=== PATIENT | male | born 1965 | race Caucasian/White ===

== ENCOUNTER 2020-12-09 15:44 | Emergency (ER) | payer OTHER ==
[2020-12-09 16:07] VITALS: BP 163/111; PULSE 102; TEMP 98.1; BMI 28.1
[2020-12-09 17:02] LABS: BASO % 1.2 % (0-2.0); EOS % 2.9 % (0-4.5); HEMATOCRIT 47.2 % (35.4-49); HEMOGLOBIN 15.9 GM/dl (11.7-16.9); LYMPH % 25.9 % (8-40); MCH 29.9 pg (25.7-33.7); MCHC 33.8 g/dl (32.0-35.9); MEAN CELL VOLUME 88.5 fl (80-96); MEAN PLT VOLUME 8.5 fl (7.5-11.1); MONO % 6.4 % (3.8-10.2); NEUT % 63.6 % (42.8-82.8); PLATELET COUNT 269 K/MM3 (134-434); RBC 5.33 M/mm3 (4.00-5.60); RDW 12.3 % (11.9-15.9); WHITE BLOOD COUNT 6.2 K/mm3 (4.0-10.8)
[2020-12-09 17:18] LABS: ALBUMIN 4.1 g/dl (3.4-5.0); ALK PHOS 62 U/L (45-117); ANION GAP 7 MMOL/L (8-16); BILIRUBIN,TOTAL 0.6 mg/dl (0.2-1); CALCIUM 9.1 mg/dl (8.5-10); CHLORIDE 104 mmol/L (98-107); CO2 24 mmol/L (21-32); GLUCOSE,RANDOM 105 mg/dl (74-106); SGOT/AST 25 U/L (15-37); SGPT/ALT 52 U/L (13-61); SODIUM 135 mmol/L (136-145); TOT PROT 7.3 g/dl (6.4-8.2)
== END 2020-12-09 20:58 | disposition left against medical advice (07) ==
LOC: FER 15:44
DX: R10.13 Epigastric pain (principal)
CPT/HCPCS: 36415; 71046-TC-FY; 80053; 82550; 83735; 84443; 84484; 85025; 85379; 93005; 99285-25; C9803; U0003

== ENCOUNTER 2020-12-28 08:47 | Inpatient (IN) | payer OTHER ==
[2020-12-28] MEDS ORDERED: ASPIRIN 81 MG CHEWABLE TABLETS PO ONE (09:09)
[2020-12-28] MEDS ORDERED: METOPROLOL TARTRATE 5 MG/5 ML VIAL IVPUSH ONE (09:10)
[2020-12-28] MEDS ORDERED: NITROGLYCERIN SUBLINGUAL 1/150 0.4 MG TAB SL ONE (09:10)
[2020-12-28] MEDS ORDERED: FAMOTIDINE 20 MG/50 ML IVPB 20 MG/50 ML MG IVPB ONE ×2 (09:22→09:32)
[2020-12-28] MEDS ORDERED: METOPROLOL TARTRATE 5 MG/5 ML VIAL ONE (09:24)
[2020-12-28] MEDS ORDERED: ASPIRIN 81 MG CHEWABLE TABLETS ONE (09:24)
[2020-12-28] MEDS ORDERED: NITROGLYCERIN SUBLINGUAL 1/150 0.4 MG TAB ONE (09:24)
[2020-12-28 09:30] LABS: HEMATOCRIT 48.2 % (35.4-49); HEMOGLOBIN 16.7 GM/dl (11.7-16.9); MCH 30.4 pg (25.7-33.7); MCHC 34.6 g/dl (32.0-35.9); MEAN CELL VOLUME 87.8 fl (80-96); MEAN PLT VOLUME 8.8 fl (7.5-11.1); PLATELET COUNT 264 K/MM3 (134-434); RBC 5.49 M/mm3 (4.00-5.60); RDW 12.3 % (11.9-15.9); WHITE BLOOD COUNT 6.4 K/mm3 (4.0-10.8)
[2020-12-28 09:46] LABS: ALBUMIN 4.1 g/dl (3.4-5.0); BILIRUBIN,TOTAL 0.7 mg/dl (0.2-1); CALCIUM 9.6 mg/dl (8.5-10); CREATININE 0.9 mg/dl (0.55-1.3); TOT PROT 7.3 g/dl (6.4-8.2)
[2020-12-28 09:55] LABS: PLATELET ESTIMATE ADEQUATE
[2020-12-28] MEDS ORDERED: dilTIAZem HCL 50 MG/10 ML - 10 ML VIAL IVPUSH ONE ×5 (10:23→15:07)
[2020-12-28] MEDS ORDERED: dilTIAZem HCL 125 MG/25 ML - 25 ML VIAL ONE ×2 (10:37→13:29)
[2020-12-28] MEDS ORDERED: dilTIAZem HCL 30 MG TABLET PO ONE (12:20)
[2020-12-28] MEDS ORDERED: dilTIAZem HCL 30 MG TABLET ONE (12:28)
[2020-12-28] MEDS: APIXABAN 5 MG TABLET PO SCH (13:34)
[2020-12-28 13:41] LABS: CHOLESTEROL 307 mg/dl (50-200); HDL CHOLESTEROL 50 mg/dl (40-60); LDL CHOLESTEROL (ONLY DFH) 216 mg/dl (5-100); TRIGLYCERIDES 207 mg/dl (0-150)
[2020-12-28] MEDS ORDERED: MAG HYDROX/AL HYDROX/SIMETH 30 ML UNIT-DOSE CUP ONE (14:09)
[2020-12-28] MEDS: METOPROLOL TARTRATE 25 MG TABLET (FP) PO SCH ×2 (15:25→21:19)
[2020-12-28 16:13] VITALS: BMI 29.4
[2020-12-28] MEDS: dilTIAZem HCL 30 MG TABLET PO SCH ×2 (18:09→23:42)
[2020-12-28] MEDS ORDERED: ATORVASTATIN CA 40 MG TABLET (FP) PO SCH (22:00)
[2020-12-28] MEDS ORDERED: METOPROLOL TARTRATE 25 MG TABLET (FP) PO SCH (22:00)
[2020-12-29] MEDS: dilTIAZem HCL 30 MG TABLET PO SCH (05:38)
[2020-12-29 08:29] LABS: BASO % 0.4 % (0-2.0); EOS % 3.6 % (0-4.5); HEMATOCRIT 44.8 % (35.4-49); HEMOGLOBIN 15.4 GM/dl (11.7-16.9); LYMPH % 29.3 % (8-40); MCH 30.1 pg (25.7-33.7); MCHC 34.4 g/dl (32.0-35.9); MEAN CELL VOLUME 87.7 fl (80-96); MEAN PLT VOLUME 8.7 fl (7.5-11.1); MONO % 7.8 % (3.8-10.2); NEUT % 58.9 % (42.8-82.8); PLATELET COUNT 256 K/MM3 (134-434); RBC 5.11 M/mm3 (4.00-5.60); WHITE BLOOD COUNT 6.2 K/mm3 (4.0-10.8)
[2020-12-29 08:31] LABS: INR 1.29 (0.82-1.09); PROTHROMBIN TIME (PATIENT) 14.2 SEC (10.2-13.0)
[2020-12-29 08:34] LABS: ALBUMIN 3.6 g/dl (3.4-5.0); BILIRUBIN,TOTAL 0.9 mg/dl (0.2-1); CALCIUM 8.9 mg/dl (8.5-10); MAGNESIUM 1.9 mg/dL (1.8-2.4); TOT PROT 6.3 g/dl (6.4-8.2)
[2020-12-29 08:38] LABS: ACTIVATED PTT 29.2 SECONDS (25.2-36.5)
[2020-12-29] MEDS: METOPROLOL TARTRATE 25 MG TABLET (FP) PO SCH (09:15)
[2020-12-29] MEDS: APIXABAN 5 MG TABLET PO SCH (09:15)
[2020-12-29] MEDS ORDERED: PANTOPRAZOLE 40 MG TABLET PO SCH (10:00)
[2020-12-29] MEDS ORDERED: ASPIRIN COATED 81 MG TABLET.EC PO SCH (10:00)
[2020-12-29 11:44] VITALS: BP 121/88; PULSE 65; TEMP 97.5
== END 2020-12-29 15:34 | disposition home or self-care (01) | DRG 310 ==
LOC: FER 08:47 → FM/S 14:02
PROVIDERS: ADMIT Internal Medicine; ATTEND Nurse Practitioner Acute Care
DX: I48.0 Paroxysmal atrial fibrillation (principal); I10 Essential (primary) hypertension; E78.5 Hyperlipidemia, unspecified; K21.9 Gastro-esophageal reflux disease without esophagitis
CPT/HCPCS: 36415; 71045-TC-FY; 80048; 80053; 80061; 81003; 82272; 82550; 83036; 83690; 83735; 84443; 84484; 85025; 85610; 85730; 93005; 93306-TC; 99285-25; C9803; U0003; U0005